=== PATIENT | male | born 1955 | race Caucasian/White ===

== ENCOUNTER 2018-10-25 12:01 | Emergency (ER) | payer OTHER ==
[~2018-10-25] VITALS: Ht 165.1 cm; Wt 86.9 kg
[2018-10-25 12:02] VITALS: BP 131/85
--- NOTE | 2018-10-25 12:11 | NUR ---
PT AMBULATED TO BED 2 WITH STEADY GAIT.
[2018-10-25] MEDS ORDERED: KETOROLAC 60 MG/2 ML VIAL IM ONE (12:30)
--- NOTE | 2018-10-25 12:46 | NUR ---
MEDICATED WRITTEN--PT AMBULATED TO RESTROOM WITH STEADY GAIT FOR URINE SAMPLE
[2018-10-25 13:42] LABS: APPEARANCE,URINE HAZY (CLEAR); BILIRUBIN,URINE NEGATIVE (NEGATIVE); BLOOD, URINE NEGATIVE (NEGATIVE); COLOR,URINE YELLOW (YELLOW); LEUKOCYTE ESTERASE ,URINE NEGATIVE (NEGATIVE); NITRITE, URINE NEGATIVE (NEGATIVE); UGLUCOSE NEGATIVE (NEGATIVE)
[2018-10-25 13:58] LABS: RBC,URINE 0 /HPF (0-5); WBC,URINE 0-5 /HPF (0-5)
[2018-10-25 14:15] VITALS: BP 131/85
== END 2018-10-25 14:15 | disposition home or self-care (01) ==
LOC: MED 12:01
DX: S39.012A Strain of muscle, fascia and tendon of lower back, initial encounter (principal); X58.XXXA Exposure to other specified factors, initial encounter; Y93.89 Activity, other specified; Y92.89 Other specified places as the place of occurrence of the external cause; Y99.8 Other external cause status
CPT/HCPCS: 81001; 96372; 99283; J1885; 81002